=== PATIENT | female | born 1940 | race African-American/Black ===

== ENCOUNTER → 2020-06-15 | Outpatient (CLI) | payer MEDICARE ==
[~2020-06-15] MED LIST: FAMO40TA70 MT; LOSA1TAB40 MT; SOLI10TA MT
== END | disposition home or self-care (01) ==
LOC: LAB 15:34
PROVIDERS: ATTEND Specialist
DX: Z01.812 Encounter for preprocedural laboratory examination (principal); R05 Cough; Z20.828 Contact with and (suspected) exposure to other viral communicable diseases
CPT/HCPCS: C9803; U0003

== ENCOUNTER 2020-06-17 11:27 | Inpatient (IN) | payer MEDICARE, OTHER ==
[~2020-06-17] VITALS: Ht 162.6 cm; Wt 82.6 kg
[2020-06-17] MEDS ORDERED: NICARDIPINE 100MCG/ML 10ML VIAL (CATH LAB) IV ONE (12:00)
[2020-06-17] MEDS ORDERED: NITROGLYCERIN 50MCG/ML 10ML VIAL (CATH LAB) IV ONE (12:00)
[2020-06-17] MEDS ORDERED: FAMO40TA70 MT (13:33)
[2020-06-17] MEDS ORDERED: LOSA1TAB40 MT (13:33)
[2020-06-17] MEDS ORDERED: SOLI10TA MT (13:33)
[2020-06-17] MEDS ORDERED: LIDOCAINE HCL 1% 20ML VIAL (Pyxis) INJ ONE (14:16)
[2020-06-17] MEDS ORDERED: IOHEXOL-300 100 ML BOTTLE ONE ×2 (14:16→15:15)
[2020-06-17] MEDS ORDERED: MIDAZOLAM HCL 2 MG/2 ML VIAL ONE ×2 (14:26→15:06)
[2020-06-17] MEDS ORDERED: FENTANYL CITRATE/PF 50MCG/ML 2ML VIAL ONE (14:26)
[2020-06-17] MEDS ORDERED: IODIXANOL 320MG/ML 100 ML BOTTLE IV ONE (15:31)
[2020-06-17] MEDS ORDERED: HYDRALAZINE 20MG/ML VIAL ONE (15:34)
[2020-06-17] MEDS ORDERED: ACETAMINOPHEN 325MG TABLET PO PRN (15:45)
[2020-06-17] MEDS ORDERED: ATROPINE SULFATE 1MG/10ML SYR IV PRN (15:45)
[2020-06-17] MEDS ORDERED: ASPIRIN 325MG TABLET ONE (16:04)
[2020-06-17] MEDS ORDERED: CLOPIDOGREL 75MG TABLET ONE (16:04)
[2020-06-17 16:38] VITALS: BP 130/73
[2020-06-17 16:44] VITALS: BP 130/73
[2020-06-17] MEDS ORDERED: CYCLOBENZAPRINE 10MG TABLET PO PRN (18:00)
[2020-06-17] MEDS ORDERED: IBUPROFEN 400MG TABLET PO PRN (18:00)
[2020-06-17 19:26] VITALS: BP 127/31
[2020-06-17 19:55] VITALS: BP 133/80
[2020-06-17] MEDS ORDERED: IBUPROFEN 600MG TABLET PO PRN (21:15)
[2020-06-17 21:26] VITALS: BP 130/74
[2020-06-17 21:56] VITALS: BP 134/80
[2020-06-17] MEDS: MORPHINE SULFATE 2 MG/ML CPJ (NOT FOR IM USE) IV PRN (23:11)
[2020-06-18 00:14] VITALS: BP 128/72
[2020-06-18 02:29] VITALS: BP 130/79
[2020-06-18] MEDS: MORPHINE SULFATE 2 MG/ML CPJ (NOT FOR IM USE) IV PRN (03:04)
[2020-06-18 04:16] VITALS: BP 119/70
[2020-06-18 06:16] VITALS: BP 133/75
[2020-06-18 06:31] LABS: BASOPHILS % 0.5 % (0.0-2.0); HEMATOCRIT. 37.6 % (36.0-48.0); HEMOGLOBIN. 12.7 g/dL (12.0-16.0); LYMPHOCYTES % 33.9 % (20.0-50.0); MEAN CORPUSCULAR HEMOGLOBIN 30.7 pg (28.0-32.0); MEAN CORPUSCULAR VOLUME 90.7 fL (81.0-99.0); MEAN PLATELET VOLUME 9.3 fl (7.4-10.4); MONOCYTES % 12.6 % (2.0-8.0); PLATELET 189 x1000/uL (130-400); RED BLOOD CELL COUNT 4.14 mill/uL (4.2-5.4); RED CELL DISTRIBUTION WIDTH 13.3 % (11.6-14.6)
[2020-06-18 06:48] LABS: CHLORIDE 105 mEq/L (98-107)
[2020-06-18] MEDS ORDERED: POTASSIUM CHLORIDE 20MEQ/PACKET PO NR (08:15)
[2020-06-18 08:18] VITALS: BP 136/74
[2020-06-18 08:43] VITALS: BP 134/73
[2020-06-18] MEDS ORDERED: ASPIRIN 325MG TABLET PO SCH (09:00)
[2020-06-18] MEDS ORDERED: CLOPIDOGREL 75MG TABLET PO SCH (09:00)
== END 2020-06-18 09:23 | disposition home or self-care (01) | DRG 246 ==
LOC: CCL 11:27 → 3WST 11:28
PROVIDERS: ADMIT Specialist; ATTEND Specialist
PROC: 4A023N7 Measurement of Cardiac Sampling and Pressure, Left Heart, Percutaneous Approach (ICD-10-PCS; principal; 2020-06-17)
PROC: 027034Z Dilation of Coronary Artery, One Artery with Drug-eluting Intraluminal Device, Percutaneous Approach (ICD-10-PCS; 2020-06-17)
PROC: B2111ZZ Fluoroscopy of Multiple Coronary Arteries using Low Osmolar Contrast (ICD-10-PCS; 2020-06-17)
PROC: B2151ZZ Fluoroscopy of Left Heart using Low Osmolar Contrast (ICD-10-PCS; 2020-06-17)
DX: I25.110 Atherosclerotic heart disease of native coronary artery with unstable angina pectoris (principal); I50.33 Acute on chronic diastolic (congestive) heart failure; F17.210 Nicotine dependence, cigarettes, uncomplicated; E03.9 Hypothyroidism, unspecified; E11.9 Type 2 diabetes mellitus without complications; E78.5 Hyperlipidemia, unspecified; E87.6 Hypokalemia; R00.1 Bradycardia, unspecified; I45.10 Unspecified right bundle-branch block; J84.10 Pulmonary fibrosis, unspecified; K21.9 Gastro-esophageal reflux disease without esophagitis; Z79.02 Long term (current) use of antithrombotics/antiplatelets; Z79.82 Long term (current) use of aspirin; I11.0 Hypertensive heart disease with heart failure
CPT/HCPCS: 36415; 80048; 85025; 85347; 92928; 93005; 93458; C1760; C1769; C1874; C1887; C1893; C9803; J0360; J1644; J2250; J2270; J3010; J3490; Q9967; U0003